=== PATIENT | female | born 1960 | race African-American/Black ===

== ENCOUNTER 2017-05-16 10:50 | Outpatient (CLI) ==
[2016-04-11 21:12] VITALS: BMI 27.4
[2017-05-16 11:07] LABS: BASOPHILS % (AUTO) 0.9 % (0.0-3.0); EOSINOPHILS # (AUTO) 0.2 K/ul (0.0-0.7); EOSINOPHILS % (AUTO) 3.7 % (0.0-7.0); HEMATOCRIT 41.8 % (37.0-47.0); HEMOGLOBIN 14.5 g/dl (12.0-16.0); IMMATURE GRANULOCYTE % (AUTO) 0.2 % (0.0-5.0); LYMPHOCYTES # (AUTO) 2.1 K/uL (0.60-3.4); LYMPHOCYTES % (AUTO) 47.9 (10.0-50.0); MEAN CORPUSCULAR HEMOGLOBIN 30.1 pg (27.0-31.0); MEAN CORPUSCULAR HGB CONC 34.7 (31.8-35.4); MEAN CORPUSCULAR VOLUME 86.9 fl (81.0-99.0); MONOCYTES # (AUTO) 0.3 K/uL (0.4-2.0); MONOCYTES % (AUTO) 6.5 (0-10); NEUTROPHILS # (AUTO) 1.7 K/ul (2.0-6.9); NEUTROPHILS % (AUTO) 40.8; PLATELET COUNT 230 10^3/uL (140-440); RED BLOOD COUNT 4.81 10^6/ul (4.20-5.40); WHITE BLOOD COUNT 4.28 K/ul (4.6-10.2)
[2017-05-16 11:44] LABS: ALBUMIN 3.8 g/dL (3.4-5.0); ALBUMIN/GLOBULIN RATIO 1.12; ANION GAP 12.2; BILIRUBIN,TOTAL 0.58 mg/dL (0.00-1.20); BUN/CREATININE RATIO 6.66; CALCIUM 9.6 mg/dL (8.2-10.2); CHOL/HDL RATIO 2.1 (4.5-5.5); CREATININE 0.9 mg/dL (0.60-1.30); POTASSIUM 4.2 mmol/L (3.5-5.10); TOTAL PROTEIN 7.2 g/dL (6.4-8.2)
== END 2017-05-16 10:51 | disposition home or self-care (01) ==
LOC: LAB 10:50
PROVIDERS: ATTEND Physician Assistant Medical
DX: Z00.00 Encounter for general adult medical examination without abnormal findings (principal)
CPT/HCPCS: 36415; 80053; 80061; 84443; 85025; 86803

== ENCOUNTER 2017-06-09 21:04 | Emergency (ER) ==
[2017-06-09 21:04] VITALS: BMI 27.4
[2017-06-09 21:13] VITALS: BP 163/97; TEMP 98.6
[2017-06-09] MEDS ORDERED: ROCEPHIN IM STA (21:17)
[2017-06-09] MEDS ORDERED: DECADRON 4 MG/ML SDV IM STA (21:17)
[2017-06-09] MEDS ORDERED: MORPHINE 2 MG/ML SYRINGE IM STA (21:17)
[2017-06-09] MEDS ORDERED: ZOFRAN 4 MG/2 ML IM STA (21:17)
--- NOTE | 2017-06-09 21:19 | ED.PDOC ---
General ED Provider: Dr. BRENDAN CARRILLO-ER Chief Complaint: Tooth Problem Stated Complaint: sarah been to the dentist yesterday and started on clinda--now i am having swelling Time Seen by Physician: 21:18 Mode of Arrival: Walk-In Information Source: Patient Exam Limitations: No limitations Primary Care Provider: MARLA REDMAN Nursing and Triage Documentation Reviewed and Agree: Yes EENT Complaint Exam - Dental/Oral Complaint/Exam Mechanism of Injury: No known trauma Onset/Duration: 24 hrs Symptoms Are: Still present Timing: Constant Initial Severity: Mild Current Severity: Mild Location: right mid jaw Character: Reports: Dull, Aching, Throbbing Aggravating: Reports: Heat, Cold, Chewing Alleviating: Reports: None Associated Signs and Symptoms: Reports: Swelling. Denies: Discharge, Fever, Foul odor, Foul taste in mouth Related History: Reports: Previous tooth problem Tooth Findings: Present: Percussion tenderness, Gross decay, Gross caries Cervical Lymphadenopathy Present: Yes Facial Swelling Present: Yes Bleeding Present: No Oropharynx Findings: Absent: Clots, Active bleeding Septal Hematoma: No Foreign Body Present: No Dysphagia Present: No Drooling Present: No Asymmetrical Tonsillar Swelling Present: No Uvula Midline: Yes Jessica-tonsillar Fluctuence: No Trismus Present: No Palatal Petechiae Present: No Scarlatinaform Rash Present: No Differential Diagnoses: Dental Abcess, Dental Caries Review of Systems - Review Of Systems Constitutional: Reports: No symptoms Eyes: Reports: No symptoms Ears, Nose, Mouth, Throat: Reports: Mouth pain, Mouth swelling Respiratory: Reports: No symptoms Cardiac: Reports: No symptoms GI: Reports: No symptoms : Reports: No symptoms Musculoskeletal: Reports: No symptoms Skin: Reports: No symptoms Neurological: Reports: No symptoms Endocrine: Reports: No symptoms Hematologic/Lymphatic: Reports: No symptoms All Other Systems: Reviewed and Negative Past Medical History - Past Medical History Previously Healthy: Yes Endocrine: Reports: None Cardiovascular: Reports: None Respiratory: Reports: None Hematological: Reports: None Gastrointestinal: Reports: None Genitourinary: Reports: None Neuro/Psych: Reports: None Musculoskeletal: Reports: None Cancer: Reports: None Last Menstrual Period: UMNKNOWN - Surgical History General Surgical History: Reports: None - Family History Family History: Reports: None - Social History Smoking Status: Current every day smoker, Light tobacco smoker Hx Substance Use: No Alcohol Screening: None Lives: With family - Immunizations Tetanus Shot up to Date: Yes Physical Exam - Physical Exam Appearance: Well-appearing, No pain distress, Well-nourished Pain Distress: Mild Eyes: ALY, EOMI, Conjunctiva clear ENT: Ears normal, Nose normal, Oropharynx normal (notd mild mid mandible swelling right side) Neck: Supple Respiratory: Airway patent, Breath sounds clear, Breath sounds equal, Respirations nonlabored Cardiovascular: RRR, Pulses normal, No rub, No murmur GI/: Soft, Nontender, No masses, Bowel sounds normal, No Organomegaly Musculoskeletal: Normal strength, ROM intact, No edema, No calf tenderness Skin: Warm, Dry, Normal color Neurological: Sensation intact Psychiatric: Affect appropriate, Mood appropriate Critical Care Note - Critical Care Note Total Time (mins): 0 Course - Course Vital Signs: Temp Pulse Resp BP Pulse Ox 06/09/17 21:05 98.6 F 54 L 16 163/97 H 96 Departure - Departure Time of Disposition: 21:21 Disposition: HOME SELF-CARE Discharge Problem: Dental abscess Instructions: Dental Abscess (ED) Condition: Good Pt referred to PMD for follow-up: Yes Additional Instructions: continue antbx==norco 7.5mg q 4hrs prn pain #10--f/u with dentist on sunday-- return if swelling worsens Allergies/Adverse Reactions: Allergies No Known Allergies Allergy (Verified 06/09/17 21:13) Home Medications: Ambulatory Orders Clindamycin HCl 150 mg PO TID 06/09/17 Disposition Discussed With: Patient, Family
[2017-06-09] MEDS ORDERED: LIDOCAINE HCL 1% SDV ONE (21:47)
== END 2017-06-09 22:14 | disposition home or self-care (01) ==
LOC: ED 21:04
DX: K04.7 Periapical abscess without sinus (principal)
CPT/HCPCS: 96372; 99282